=== PATIENT | female | born 1945 | race African-American/Black ===

== ENCOUNTER 2023-07-22 09:52 | Outpatient (CLI) | payer OTHER, SELFPAY ==
--- NOTE | ~2023-07-22 | CT_ITS ---
CT Scan of the Chest without Contrast: Clinical Indication: Left renal mass Technique: Contiguous sections were acquired throughout the chest without intravenous contrast. Dose reduction technique was used on this scan by utilizing automated exposure control and iterative recon struction technique. The dose-length product (DLP) was 285.36 mGy-cm. Findings: There is no evidence of any significant mediastinal, hilar or axillary lymphadenopathy. There are ath erosclerotic calcifications of the aorta and coronary arteries. There is no evidence of pleural or pericardial effusion. Calcified right lower lobe granuloma noted. Lungs are otherwise clear. Images through the upper abdomen reveal no abnormalities. Impression: No significant abnormalities seen. Reviewed, dictated and finalized at location . EL SNIPPER Impression: No significant abnormalities seen.
--- NOTE | ~2023-07-22 | NM_ITS ---
EXAMINATION: JEMIMA freedman renal scan DATE: 07/22/2023 11:53 INDICATION: Left kidney mass. TECHNIQUE: 7.2 mCi Tc-99m MAG3 was administered IV. 40 mg furosemide was administered IV immediately afterward. The patient was scanned in the upright/supine position. A posterior abdominal radionuclid e angiogram was obtained. A subsequent time course of static images of the kidneys, ureters, and blad pierre was obtained. COMPARISON: Chest CT 07/22/2023 FINDINGS: The posterior abdominal radionuclide angiogram and sequential static images show decreased size of the left kidney. Peak renal parenchymal uptake was 3 min in right kidney and 3 min in left ki dney (normal peak 3-5 minutes). The relative early renal uptake was 64% on the right and 36% on the left (<40% is abnormal). No abnormalities of the ureters or bladder are seen. T1/2 for clearance of activity from the right kidney and proximal collecting system was 14 minutes. T1/2 for clearance of activity from the left kidney and proximal collecting system was 18 minutes. IMPRESSION: 1. Relatively decreased left kidney function, which is 36% of total renal function. Reviewed, dictated and finalized at location A. N INSPECTOR IMPRESSION: 1. Relatively decreased left kidney function, which is 36% of total renal func tion.
[2023-07-22 12:36] LABS: Anion Gap 11 mmol/L (8-16); Blood Urea Nitrogen 22 mg/dL (7-17); Calcium 10.8 mg/dL (8.4-10.2); Carbon Dioxide 24 mmol/L (22-30); Chloride 107 mmol/L (98-107); Estimated Glomerular Filt Rate 41; Glucose 136 mg/dL (65-110); Potassium 4.4 mmol/L (3.4-5.0); Sodium 142 mmol/L (137-145)
== END 2023-07-22 09:53 | disposition home or self-care (01) ==
PROVIDERS: PCP Internal Medicine; Visit Provider Urology
DX: N28.89 Other specified disorders of kidney and ureter (principal)
CPT/HCPCS: 36415; 71250; 78708; 80048; A9562; J1940